=== PATIENT | female | born 1995 | race Caucasian/White ===

== ENCOUNTER → 2019-01-26 13:38 | Outpatient (CLI) | payer BC, SELFPAY ==
--- NOTE | 2019-01-26 13:47 | CA_ITS ---
APPROVED REPORT Right Lower Extremity Venous Study for DVT. Babbitt Spinner: CT Indications Vein Imaging CFV (R): compressive, spontaneous, phasic, augmentation SFJ (R): compressive, spontaneous, phasic, augmentation FEM (R): compressive, spontaneous, phasic, augmentation POP (R): compressive, spontaneous, phasic, augmentation DFV (R): compressive, spontaneous, phasic, augmentation PTV (R): compressive, spontaneous, phasic, augmentation GSV (R): compressive, spontaneous, phasic, augmentation SSV (R): compressive, spontaneous, phasic, augmentation Peroneals (R):compressive, spontaneous, phasic, augmentation GAS (R): compressive, spontaneous, phasic, augmentation CFV (L): compressive, spontaneous, phasic, augmentation SFJ (L): compressive, spontaneous, phasic, augmentation FEM (L): compressive, spontaneous, phasic, augmentation POP (L): compressive, spontaneous, phasic, augmentation DFV (L): compressive, spontaneous, phasic, augmentation PTV (L): compressive, spontaneous, phasic, augmentation GSV (L): compressive, spontaneous, phasic, augmentation SSV (L): compressive, spontaneous, phasic, augmentation Peroneals (L):compressive, spontaneous, phasic, augmentation GAS (L): compressive, spontaneous, phasic, augmentation Findings RLE negative for SVT/DVT. Vessels compressible. Conclusion No evidence of DVT or superficial thrombophlebitis in the veins scanned of the right lower extremity. Electronically signed by : John Ortega MD 01/26/2019 17:33:06
== END ==
PROVIDERS: Visit Provider Nurse Practitioner
DX: M79.89 Other specified soft tissue disorders (principal)
CPT/HCPCS: 93971

== ENCOUNTER → 2020-07-28 08:27 | Outpatient (CLI) | payer BC, OTHER, SELFPAY ==
--- NOTE | 2020-07-28 08:34 | XR_ITS ---
PROCEDURE INFORMATION: Exam: XR Left Foot Exam date and time: 07/28/2020 8:34 AM Age: 25 years old Clinical indication: Pain; Foot; Left TECHNIQUE: Imaging protocol: XR Left foot. Views: 3 or more views. COMPARISON: No relevant prior studies available. FINDINGS: Bones/joints: There is no evidence of acute fracture.There is no evidence of malalignment or dislocation. Soft tissues: Normal. IMPRESSION: There is no evidence of acute fracture.There is no evidence of malalignment or dislocation.
--- NOTE | 2020-07-28 08:34 | XR_ITS ---
PROCEDURE INFORMATION: Exam: XR Right Foot Exam date and time: 07/28/2020 8:34 AM Age: 25 years old Clinical indication: Pain; Foot; Right TECHNIQUE: Imaging protocol: XR Right foot. Views: 3 or more views. COMPARISON: CR XR FOOT RT MIN 3V 01/25/2019 6:51 PM FINDINGS: Bones/joints: Sliver of bone over the dorsal aspect of the foot may represent unhealed avulsion fracture.. Soft tissues: Soft tissue swelling over the dorsum of the foot IMPRESSION: Sliver of bone over the dorsal aspect of the foot may represent unhealed avulsion fracture..
== END ==
PROVIDERS: PCP Family Medicine; Visit Provider Podiatrist
DX: M79.672 Pain in left foot (principal); M79.671 Pain in right foot
CPT/HCPCS: 73630

== ENCOUNTER → 2021-09-23 13:05 | Outpatient (CLI) | payer OTHER, SELFPAY ==
--- NOTE | 2021-09-23 13:05 | MR_ITS ---
FINAL REPORT CLINICAL HISTORY: right foot pain, injury right foot and lateral ankle pain no injury swelling around foot ankle pain x 3 years FINDINGS: Multiplanar MR imaging of the right foot was performed without contrast. The bony structures are intact without evidence of fracture, bone bruise or marrow edema. The flexor and extensor tendons are intact. No ligamentous injury is identified. The musculature is intact. The plantar aponeurosis is intact. No soft tissue mass or cyst is identified. There is dorsal foot soft tissue edema. IMPRESSION: No acute bony abnormality identified. Reviewed, Interpreted and Dictated by Stuart Baker III, MD Transcribed by Kristin Toscano Authenticated and [facility]
== END ==
PROVIDERS: PCP Family Medicine; Visit Provider Podiatrist
DX: M79.671 Pain in right foot (principal); S92.301A Fracture of unspecified metatarsal bone(s), right foot, initial encounter for closed fracture; S93.621A Sprain of tarsometatarsal ligament of right foot, initial encounter
CPT/HCPCS: 73718

== ENCOUNTER 2021-11-04 13:47 | Outpatient (RCR) | payer OTHER, SELFPAY ==
--- NOTE | 2021-11-04 14:32 | [facility].PTOPWND ---
Rehab Outpt Wound Evaluation Rehab OP Wound Evaluation Start: 11/04/21 14:00 Freq: Status: Active Protocol: Document 11/04/21 14:23 MEGAN (Rec: 11/04/21 14:32 PHORMARIUM [id number]) Electronically Signed By Armando Woodson, PT 11/04/21 14:23 Subjective/History History History Pt is 26 yowf who presents with c/o pain and swellin gin her R foot x ~ 3 yrs overall. She reports several small injuries over this time frame which resulted in edema on the dorsum of the foot which does decrease with elevation. She reports pain only with prolonged standing or walking. She reports no significant PMH. Subjective Subjective Currently pain 0/10, at worst 8/10. She reports 1/4 tenderness to palpation only along toes of the R foot. Pain increased with Raza's test. Lymphedema Eval Classification of Lymphedema Secondary Lymphedema Yes Stemmer's sign Stemmer's Sign yes Stage of Lymphedema Lymphedema stages Stage I (Pitting edema, reduces w/ elevation, no fibrosis) Pain Scale Pain Scale (0-10) 8 Affected Extremities Areas Affected by Lymphedema/Edema Right Lower Extremity Manual Lymphatic Drainage Treatment Area MLD Treatment Area Right Lower Extremity Wound Problems/Impairments Impairments Problems/Impairmments Palpation Tenderness,Impaired Walking,Impaired Standing, Impaired Recreational Activities,Impaired Work Activities,Increased Edema, Lymphedema Present,Subjective C/O Pain,Impaired Self Care/ Self Management Prognosis Rehab Potential Good Clinical Impression Consistent with Diagnosis Yes Short Term Goals Number of Weeks 2 Decreased Palpation Tenderness Yes: 0/4 R foot Increase Ability to Stand Yes Decrease Edema Yes Decrease Subjective C/O Pain Yes: 5/10 Patient to Understand Lymphedema Yes 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
== END 2021-11-04 13:50 | disposition home or self-care (01) ==
LOC: PT 13:47
PROVIDERS: PCP Family Medicine; Visit Provider Podiatrist
DX: R60.0 Localized edema (principal); M79.89 Other specified soft tissue disorders
CPT/HCPCS: 97162; 97535

== ENCOUNTER → 2021-12-29 13:06 | Outpatient (CLI) | payer OTHER, SELFPAY ==
[2021-12-29 14:46] LABS: Chol/HDL Ratio 5.6 (1-3.5); Cholesterol 224 mg/dl (140-200); HDL Cholesterol 40 mg/dl (40-60)
[2021-12-29 14:52] LABS: Triglycerides 464 mg/dl (30-150)
[2021-12-29 14:56] LABS: Direct LDL Cholesterol 118.09 mg/dL (100-129)
== END ==
PROVIDERS: PCP Family Medicine; Visit Provider Family Medicine
DX: E55.9 Vitamin D deficiency, unspecified (principal); E78.2 Mixed hyperlipidemia
CPT/HCPCS: 36415; 80061; 82306